=== PATIENT | female | born 1965 | race Caucasian/White ===

== ENCOUNTER → 2021-01-27 | Outpatient (CLI) | payer MEDICARE ==
[~2021-01-27] MED LIST: AMBIEN CR12.5 MG PO; ARIMIDEX1 MG PO; ASPIR 8181 MG PO; CENTRUM SILVER1 EAC1 PO; CLOPIDOGREL75 MG PO; CRESTOR 10 MG T10 MG PO; CYMBALTA60 MG PO; DITROPAN XL5 MG PO; FLONASE 0.05% N16 GM; HYGROTON TAB 2525 MG PO; LOPRESSOR 25 MG25 MG PO; MAGOX 400400 MG PO; NEURONTIN 300300 MG PO; NEURONTIN600 MG PO; NEXIUM40 MG PO; NITROSTAT0.4 MG SL; OXYCODONE HCL10 MG PO; OXYCONTIN10 MG PO; PHENERGAN 25 MG25 M1 PO; PRINIVIL10 MG PO; SOMA350 MG PO; TUMS ULTRA400 MG PO; VITAMIN D35000 UNI1 PO
== END ==
LOC: MRI 09:30
DX: H90.3 Sensorineural hearing loss, bilateral (principal)
CPT/HCPCS: 36415; 82565

== ENCOUNTER → 2021-02-17 | Outpatient (CLI) | payer MEDICARE | LOC: KOH-I 09:26 | DX: H90.3 Sensorineural hearing loss, bilateral (principal) | CPT/HCPCS: 70551 ==

== ENCOUNTER → 2021-07-13 | Outpatient (CLI) | payer MEDICARE | LOC: KOH-I 13:56 | DX: F17.210 Nicotine dependence, cigarettes, uncomplicated (principal); R91.8 Other nonspecific abnormal finding of lung field | CPT/HCPCS: 71271 ==

== ENCOUNTER → 2021-12-06 | Day surgery (SDC) | payer MEDICARE ==
[~2021-12-06] MED LIST changes: +ANASTROZOLE1 MG PO; +GABAPENTIN600 MG PO; +LISINOPRIL10 MG PO; +METAXALONE800 MG PO; -NEURONTIN 300300 MG PO; -PRINIVIL10 MG PO
== END | disposition home or self-care (01) ==
LOC: OR 05:48
DX: Z12.11 Encounter for screening for malignant neoplasm of colon (principal); K31.9 Disease of stomach and duodenum, unspecified; K29.50 Unspecified chronic gastritis without bleeding; K22.70 Barrett's esophagus without dysplasia; K64.4 Residual hemorrhoidal skin tags; K21.9 Gastro-esophageal reflux disease without esophagitis; I25.10 Atherosclerotic heart disease of native coronary artery without angina pectoris; E78.5 Hyperlipidemia, unspecified; I10 Essential (primary) hypertension; I25.2 Old myocardial infarction; Z87.891 Personal history of nicotine dependence; Z86.010 Personal history of colon polyps; Z86.16 Personal history of COVID-19; Z88.5 Allergy status to narcotic agent; Z88.0 Allergy status to penicillin; Z88.2 Allergy status to sulfonamides; Z79.82 Long term (current) use of aspirin; Z79.02 Long term (current) use of antithrombotics/antiplatelets
CPT/HCPCS: J2704

== ENCOUNTER → 2022-03-02 | Outpatient (CLI) | payer MEDICARE | LOC: OPSV 12:00 | DX: C50.212 Malignant neoplasm of upper-inner quadrant of left female breast (principal) | CPT/HCPCS: 96365; J1756 ==